=== PATIENT | male | born 1965 | race African-American/Black ===

== ENCOUNTER 2019-09-18 08:11 | Emergency (ER) | payer OTHER ==
[2019-09-18 08:18] VITALS: BP 148/83; PULSE 104; TEMP 97.9; BMI 26.3
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
== END 2019-09-18 10:25 | disposition home or self-care (01) ==
LOC: JERFT 08:11 → EDBD 08:11 → JERFT 10:25
DX: S60.512A Abrasion of left hand, initial encounter (principal); M25.561 Pain in right knee; V03.10XA Pedestrian on foot injured in collision with car, pick-up truck or van in traffic accident, initial encounter; Y92.414 Local residential or business street as the place of occurrence of the external cause; Y93.89 Activity, other specified; Y99.8 Other external cause status
CPT/HCPCS: 73110-TC-LT-FY; 73130-TC-LT-FY; 73562-TC-RT-FY; 99281-25